=== PATIENT | female | born 1950 | race Caucasian/White ===

== ENCOUNTER 2017-10-16 13:16 | Outpatient (CLI) | payer MEDICARE ==
--- NOTE | 2017-11-13 11:27 | MMO ---
BILATERAL MAMMOGRAMS: History: Screening mammography. Comparison: None available. FINDINGS: Baseline study. Scattered fibroglandular densities. Marker in right breast indicates area of prior bi opsy. Inframamillary left node left breast. No dominant mass or suspicious calcifications. Study was evaluated with the assistance of computer aided detection. IMPRESSION: BIRADS category 2 - benign findings. Suggest routine follow up. POS: [facility]
== END 2017-10-16 13:17 | disposition home or self-care (01) ==
LOC: SCSMAMMO 13:16
PROVIDERS: ATTEND Nurse Practitioner Family
DX: Z12.31 Encounter for screening mammogram for malignant neoplasm of breast (principal)
CPT/HCPCS: 77067

== ENCOUNTER 2018-05-14 14:19 | Outpatient (CLI) | payer MEDICARE ==
--- NOTE | 2018-05-14 15:44 | RAD ---
LEFT FOOT THREE VIEWS: 05/14/2018 HISTORY: Left foot pain. COMPARISON: None. FINDINGS: There is degenerative change at the first tarsometatarsal joint with joint space narrowing, subchondr al sclerosis, and osteophyte formation. There is no displaced fracture or evidence of dislocation. IMPRESSION: 1. No acute fracture or evidence of dislocation is seen. 2. Degenerative change noted at the first tarsometatarsal joint. POS: [facility]
--- NOTE | 2018-05-14 15:45 | RAD ---
LEFT ANKLE THREE VIEWS: HISTORY: Pain. COMPARISON: None. FINDINGS: No significant soft tissue swelling. Joint space is preserved. Ankle mortise is intact. IMPRESSION: Unremarkable three views left ankle. POS: [facility]
== END 2018-05-14 14:20 | disposition home or self-care (01) ==
LOC: RAD-FRANK 14:19
PROVIDERS: ATTEND Nurse Practitioner Family
DX: M79.672 Pain in left foot (principal); M25.572 Pain in left ankle and joints of left foot; M19.072 Primary osteoarthritis, left ankle and foot

== ENCOUNTER 2020-01-10 13:54 | Outpatient (CLI) | payer MEDICARE ==
--- NOTE | 2020-01-10 14:46 | BD ---
DEXA BONE DENSITY STUDY: Date: 01/10/2020 HISTORY: Postmenopausal. FINDINGS: Lumbar Spine: BMD (g/cm2) L1 0.864 T-Score: -1.1 L2 0.940 T-Score: -0.8 L3 0.917 T-Score: -1.5 L4 1.101 T-Score: +0.4 Total 0.972 T-Score: -0.7 Left Femoral Neck: 0.708 T-Score: -1.3 Total Femur: 0.907 T-Score: -0.3 IMPRESSION: 1. Osteopenia of the left femoral neck. 2. Normal bone mineral density of the lumbar spine. 3. The 10 year fracture risk for a major osteoporotic fracture is 8.6% and for a hip fracture is 0.9 %. These fracture probabilities are calculated for an untreated patient. POS: [facility]
--- NOTE | 2020-01-10 14:48 | MMO ---
Bilateral MAMMO Bilat Screen [facility]. CLINICAL HISTORY: Patient is 69 years old and is seen for screening. The patient has a history of right Ultrasound Guided Core Biopsy at an unknown age - benign. VIEWS: The views performed were: bilateral craniocaudal with tomosynthesis and bilateral mediolateral oblique with tomosynthesis. FILMS COMPARED: The present examination has been compared to a prior imaging study performed at [facility] on 10/16/2017. This study has been interpreted with the assistance of computer-aided detection. MAMMOGRAM FINDINGS: There are scattered fibroglandular densities. Finding 1: There are benign appearing calcifications seen in both breasts. Finding 2: There is a stable biopsy clip seen in the right breast. There are no suspicious masses, suspicious calcifications, or new areas of architectural distortion. IMPRESSION: THERE IS NO MAMMOGRAPHIC EVIDENCE OF MALIGNANCY. A ROUTINE FOLLOW-UP MAMMOGRAM IN 1 YEAR IS RECOMMENDED. THE RESULTS OF THIS EXAM WERE SENT TO THE PATIENT. ACR BI-RADS Category 2 - Benign finding MAMMOGRAPHY NOTE: 1. A negative mammogram report should not delay a biopsy if a dominant of clinically suspicious mass is present. 2. Approximately 10% to 15% of breast cancers are not detected by mammography. 3. Adenosis and dense breasts may obscure an underlying neoplasm. Reported by: ANNA MONTENEGRO MD Electonically Signed: [id number]
== END 2020-01-10 13:55 | disposition home or self-care (01) ==
LOC: BICMAMMO 13:54
PROVIDERS: ATTEND Nurse Practitioner Family
DX: Z12.31 Encounter for screening mammogram for malignant neoplasm of breast (principal); Z13.820 Encounter for screening for osteoporosis; Z78.0 Asymptomatic menopausal state; M85.852 Other specified disorders of bone density and structure, left thigh; Z91.89 Other specified personal risk factors, not elsewhere classified
CPT/HCPCS: 77063; 77067; 77080

== ENCOUNTER 2020-07-20 13:55 | Outpatient (CLI) | payer MEDICARE | END 2020-07-20 13:56 | disposition home or self-care (01) | LOC: ULT 13:55 | PROVIDERS: ATTEND Nurse Practitioner Family | DX: M79.604 Pain in right leg (principal); M79.605 Pain in left leg; M25.473 Effusion, unspecified ankle; R71.8 Other abnormality of red blood cells; R03.0 Elevated blood-pressure reading, without diagnosis of hypertension | CPT/HCPCS: 93923; 93970 ==